=== PATIENT | male | born 1990 | race African-American/Black ===

== ENCOUNTER 2025-01-10 14:50 | Outpatient (REF) | payer MEDICAID, SELFPAY ==
[2025-01-10 16:02] LABS: MANUAL DIFF FLAG NO
[2025-01-10 16:14] LABS: Hematocrit 39.2 % (42.0-52.0); Hemoglobin 12.9 g/dl (14.0-18.0); Imm Gran Abs Auto 0.01 X10*3/uL (0.00-0.03); Imm Gran Pct Auto 0.2 % (0.0-0.4); Lymphocytes Absolute Auto 1.9 X10*3/uL (1.2-4.9); Mean Corpuscular HGB Conc 32.9 g/dl (31.0-36.0); Mean Corpuscular Hemoglobin 29.1 pg (27.0-33.0); Mean Corpuscular Volume 88.5 fL (80.0-98.0); NRBC Abs Auto 0.000 X10*3/uL (0.0-0.012); NRBC Pct Auto 0.0 /100WBC (0.0-0.2); Platelet Count 189 X10*3/uL (160-400); Red Blood Count 4.43 X10*6/uL (4.60-5.80); White Blood Count 4.6 X10*3/uL (4.8-10.8)
[2025-01-10 17:57] LABS: Alanine Aminotransferase 32 U/L (0-40); Albumin Level 4.5 g/dL (3.5-5.0); Alkaline Phosphatase 89 U/L (39-117); Anion Gap 11 (12-20); Aspartate Amino Transferase 23 U/L (5-37); Blood Urea Nitrogen 12 mg/dL (9-16); Calcium 9.5 mg/dL (8.4-10.2); Carbon Dioxide 27 mmol/L (22-29); Chloride 105 mmol/L (96-108); Cholesterol 156 mg/dL (<200); Estimated Glomerular Filt Rate > 60; HDL Cholesterol 37 mg/dL (>40); Potassium 3.7 mmol/L (3.3-5.1); Sodium 139 mmol/L (135-145); Total Protein 7.4 g/dL (6.5-8.0); Triglycerides 228 mg/dL (<150)
[2025-01-11 08:42] LABS: ~HepC Num1 0.21 S/CO (0.00-0.79); ~Hepatitis C Antibody Nonreactive (Nonreactive)
[2025-01-11 08:57] LABS: HBS Num1 > 1000.00 mIU/mL (0-7.99); HBc Num1 2.59 S/CO (0.00-0.79); HBsAGNum1 0.35 S/CO (0.00-0.99); Hepatitis B Surface Antigen Negative (Negative); ~Hepatitis B Surface Antibody REACTIVE (Nonreactive)
[2025-01-11 11:11] LABS: HBc Num2 2.48 S/CO; HBc Num3 2.57 S/CO
[2025-01-13 17:02] LABS: TS Negative Control Passed; TS Panel A 0; TS Panel B 0; TS Positive Control Passed; TSpotTB Negative (Negative)
[2025-01-14 16:12] LABS: HIV RNA PCR Qn Copies 14400 Copies/mL; HIV RNA PCR Qn Log Copies 4.16 Log cps/mL
[2025-01-14 20:32] LABS: Absolute CD8 Count 1079 cells/uL (180-1170); Percent CD8 Cells 53 % (12-42)
[2025-01-17 04:15] LABS: ~Hepatitis A Antibody IgG 9.82 S/CO (0.00-0.99)
== END 2025-01-10 14:51 | disposition home or self-care (01) ==
LOC: HO.HHCL 14:50
PROVIDERS: PCP General Practice; Referring Provider Internal Medicine; Visit Provider General Practice
DX: Z21 Asymptomatic human immunodeficiency virus [HIV] infection status (principal)
CPT/HCPCS: 36415; 80053; 80061; 85025; 86360; 86481; 86592; 86704; 86706; 86708; 86777; 86778; 86803; 87340; 87536; 87900

== ENCOUNTER 2025-03-12 09:53 | Outpatient (REF) | payer MEDICAID, SELFPAY ==
[2025-03-12 11:57] LABS: MANUAL DIFF FLAG NO
[2025-03-12 12:02] LABS: Hematocrit 44.3 % (42.0-52.0); Hemoglobin 14.5 g/dl (14.0-18.0); Imm Gran Abs Auto 0.00 X10*3/uL (0.00-0.03); Imm Gran Pct Auto 0.0 % (0.0-0.4); Lymphocytes Absolute Auto 1.7 X10*3/uL (1.2-4.9); Mean Corpuscular HGB Conc 32.7 g/dl (31.0-36.0); Mean Corpuscular Hemoglobin 29.2 pg (27.0-33.0); Mean Corpuscular Volume 89.3 fL (80.0-98.0); NRBC Abs Auto 0.000 X10*3/uL (0.0-0.012); NRBC Pct Auto 0.0 /100WBC (0.0-0.2); Platelet Count 204 X10*3/uL (160-400); Red Blood Count 4.96 X10*6/uL (4.60-5.80); White Blood Count 4.1 X10*3/uL (4.8-10.8)
[2025-03-12 13:03] LABS: Alanine Aminotransferase 18 U/L (0-40); Albumin Level 4.8 g/dL (3.5-5.0); Alkaline Phosphatase 85 U/L (39-117); Anion Gap 10 (12-20); Aspartate Amino Transferase 30 U/L (5-37); Blood Urea Nitrogen 11 mg/dL (9-16); Calcium 9.9 mg/dL (8.4-10.2); Carbon Dioxide 32 mmol/L (22-29); Chloride 105 mmol/L (96-108); Estimated Glomerular Filt Rate > 60; Potassium 4.0 mmol/L (3.3-5.1); Sodium 143 mmol/L (135-145); Total Protein 7.8 g/dL (6.5-8.0)
[2025-03-13 16:39] LABS: HIV RNA PCR Qn Copies 157 copies/mL (NOT DETECTED); HIV RNA PCR Qn Log Copies 2.20 (NOT DETECTED)
== END 2025-03-12 09:54 | disposition home or self-care (01) ==
LOC: HO.HHCL 09:53
PROVIDERS: PCP General Practice; Visit Provider Internal Medicine
DX: Z21 Asymptomatic human immunodeficiency virus [HIV] infection status (principal)
CPT/HCPCS: 36415; 80053; 82550; 85025; 87536